=== PATIENT | female | born 1955 | race Caucasian/White ===

== ENCOUNTER → 2021-11-03 09:14 | Outpatient (BNVA) | payer MEDICARE, SELFPAY | PROVIDERS: PCP Internal Medicine; Visit Provider Psychiatry & Neurology Neurology | DX: G20 Parkinson's disease (principal); G25.71 Drug induced akathisia | CPT/HCPCS: 99212 ==

== ENCOUNTER → 2022-03-23 09:47 | Outpatient (BNVA) | payer MEDICARE, SELFPAY | PROVIDERS: PCP Internal Medicine; Visit Provider Psychiatry & Neurology Neurology | DX: G20 Parkinson's disease (principal); G25.71 Drug induced akathisia; Z79.899 Other long term (current) drug therapy | CPT/HCPCS: 99212 ==

== ENCOUNTER → 2022-09-07 10:11 | Outpatient (BNVA) | payer MEDICARE, SELFPAY | PROVIDERS: PCP Internal Medicine; Visit Provider Psychiatry & Neurology Neurology | DX: G20 Parkinson's disease (principal); G25.71 Drug induced akathisia; Z79.899 Other long term (current) drug therapy | CPT/HCPCS: 99212 ==

== ENCOUNTER 2023-01-10 14:07 | Outpatient (AMB) | payer MEDICARE, SELFPAY ==
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
[2023-01-10 14:10] VITALS: BP 130/68; PULSE 80; O2SAT 98; BMI 26.1
== END 2023-01-10 14:52 | disposition home or self-care (01) ==
PROVIDERS: Visit Provider Psychiatry & Neurology Neurology
DX: G20 Parkinson's disease (principal); G25.71 Drug induced akathisia
CPT/HCPCS: 99214

== ENCOUNTER → 2023-01-10 14:07 | Outpatient (BNVA) | payer MEDICARE, SELFPAY | PROVIDERS: Visit Provider Psychiatry & Neurology Neurology | DX: G20 Parkinson's disease (principal); G25.71 Drug induced akathisia; Z79.899 Other long term (current) drug therapy | CPT/HCPCS: 99212 ==

== ENCOUNTER 2023-05-13 10:25 | Outpatient (AMB) | payer MEDICARE, SELFPAY ==
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
[2023-05-13 10:28] VITALS: BP 112/78; PULSE 78; O2SAT 98; BMI 25.3
== END 2023-05-13 10:57 | disposition home or self-care (01) ==
PROVIDERS: PCP Internal Medicine; Visit Provider Nurse Practitioner Family
DX: G20.A1 Parkinson's disease without dyskinesia, without mention of fluctuations (principal); G25.71 Drug induced akathisia
CPT/HCPCS: 99213

== ENCOUNTER → 2023-05-13 10:25 | Outpatient (BNVA) | payer MEDICARE, SELFPAY | PROVIDERS: PCP Internal Medicine; Visit Provider Nurse Practitioner Family | DX: G25.71 Drug induced akathisia (principal); G20.A1 Parkinson's disease without dyskinesia, without mention of fluctuations | CPT/HCPCS: 99212 ==

== ENCOUNTER 2023-10-20 09:17 | Outpatient (AMB) | payer MEDICARE, SELFPAY ==
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
[2023-10-20 09:33] VITALS: BP 112/72; PULSE 74; O2SAT 96; BMI 24.5
== END 2023-10-20 10:03 | disposition home or self-care (01) ==
PROVIDERS: PCP Internal Medicine; Visit Provider Nurse Practitioner Family
DX: G20.C Parkinsonism, unspecified (principal); G25.71 Drug induced akathisia
CPT/HCPCS: 99213

== ENCOUNTER → 2023-10-20 09:17 | Outpatient (BNVA) | payer MEDICARE, SELFPAY | PROVIDERS: PCP Internal Medicine; Visit Provider Nurse Practitioner Family | DX: G20.A1 Parkinson's disease without dyskinesia, without mention of fluctuations (principal); G25.71 Drug induced akathisia; T50.905A Adverse effect of unspecified drugs, medicaments and biological substances, initial encounter; Z79.899 Other long term (current) drug therapy | CPT/HCPCS: 99212 ==

== ENCOUNTER 2024-04-19 09:45 | Outpatient (AMB) | payer MEDICARE, SELFPAY ==
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
[2024-04-19 09:50] VITALS: BP 110/60; PULSE 76; O2SAT 97; BMI 25.0
== END 2024-04-19 10:27 | disposition home or self-care (01) ==
PROVIDERS: PCP Internal Medicine; Visit Provider Psychiatry & Neurology Neurology
DX: G21.11 Neuroleptic induced parkinsonism (principal); T43.505A Adverse effect of unspecified antipsychotics and neuroleptics, initial encounter; G25.71 Drug induced akathisia
CPT/HCPCS: 99214; G2211

== ENCOUNTER → 2024-04-19 09:45 | Outpatient (BNVA) | payer MEDICARE, SELFPAY | PROVIDERS: PCP Internal Medicine; Visit Provider Psychiatry & Neurology Neurology | DX: G21.11 Neuroleptic induced parkinsonism (principal); G25.71 Drug induced akathisia; T43.505A Adverse effect of unspecified antipsychotics and neuroleptics, initial encounter; Z79.899 Other long term (current) drug therapy | CPT/HCPCS: 99212 ==

== ENCOUNTER 2024-10-16 09:57 | Outpatient (AMB) | payer MEDICARE, SELFPAY ==
[2024-10-16 10:02] VITALS: BP 110/72; PULSE 80; O2SAT 97; BMI 26.1
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
== END 2024-10-16 11:24 | disposition home or self-care (01) ==
LOC: HO.HSMS 09:57
PROVIDERS: PCP Internal Medicine; Visit Provider Physician Assistant Medical
DX: G21.11 Neuroleptic induced parkinsonism (principal); T43.505A Adverse effect of unspecified antipsychotics and neuroleptics, initial encounter; R26.89 Other abnormalities of gait and mobility
CPT/HCPCS: 99214

== ENCOUNTER → 2024-10-16 09:57 | Outpatient (BNVA) | payer MEDICARE, SELFPAY | PROVIDERS: PCP Internal Medicine; Visit Provider Physician Assistant Medical | DX: G21.11 Neuroleptic induced parkinsonism (principal); R26.89 Other abnormalities of gait and mobility; T43.505A Adverse effect of unspecified antipsychotics and neuroleptics, initial encounter | CPT/HCPCS: 99212 ==

== ENCOUNTER 2025-01-30 09:42 | Outpatient (AMB) | payer MEDICARE, SELFPAY ==
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
[2025-01-30 09:56] VITALS: BP 116/72; PULSE 75; O2SAT 97; BMI 24.4
== END 2025-01-30 10:47 | disposition home or self-care (01) ==
LOC: HO.HSMS 09:43
PROVIDERS: PCP Internal Medicine; Visit Provider Physician Assistant Medical
DX: G20.B1 Parkinson's disease with dyskinesia, without mention of fluctuations (principal); G21.11 Neuroleptic induced parkinsonism; T43.505A Adverse effect of unspecified antipsychotics and neuroleptics, initial encounter; R26.89 Other abnormalities of gait and mobility
CPT/HCPCS: 99214

== ENCOUNTER → 2025-01-30 09:42 | Outpatient (BNVA) | payer MEDICARE, SELFPAY | PROVIDERS: PCP Internal Medicine; Visit Provider Physician Assistant Medical | DX: G20.B1 Parkinson's disease with dyskinesia, without mention of fluctuations (principal); G21.11 Neuroleptic induced parkinsonism; T43.505A Adverse effect of unspecified antipsychotics and neuroleptics, initial encounter; R26.89 Other abnormalities of gait and mobility | CPT/HCPCS: 99212 ==

== ENCOUNTER 2025-03-07 10:14 | Outpatient (AMB) | payer MEDICARE, SELFPAY ==
[2025-03-07 10:35] VITALS: BP 128/74; PULSE 68; O2SAT 97; BMI 24.1
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
== END 2025-03-07 11:42 | disposition home or self-care (01) ==
LOC: HO.HSMS 10:15
PROVIDERS: PCP Internal Medicine; Visit Provider Physician Assistant Medical
DX: G20.B1 Parkinson's disease with dyskinesia, without mention of fluctuations (principal); G21.11 Neuroleptic induced parkinsonism; T43.505A Adverse effect of unspecified antipsychotics and neuroleptics, initial encounter; R26.89 Other abnormalities of gait and mobility
CPT/HCPCS: 99214

== ENCOUNTER → 2025-03-07 10:14 | Outpatient (BNVA) | payer MEDICARE, SELFPAY | PROVIDERS: PCP Internal Medicine; Visit Provider Physician Assistant Medical | DX: G20.B1 Parkinson's disease with dyskinesia, without mention of fluctuations (principal); G21.11 Neuroleptic induced parkinsonism; R26.89 Other abnormalities of gait and mobility; T43.505A Adverse effect of unspecified antipsychotics and neuroleptics, initial encounter | CPT/HCPCS: 99212 ==

== ENCOUNTER 2025-04-30 12:46 | Outpatient (AMB) | payer MEDICARE, SELFPAY ==
[2025-04-30 12:51] VITALS: BP 128/70; PULSE 78; O2SAT 96; BMI 24.3
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
--- OUTSIDE RECORDS SUMMARY | 2025-04-30 15:26 | XMS_ITS | Clinical Summary ---
Author Organization [address] Address [address] [place] [id number] Phone Care Team Providers Care Knee Bolter Name Role Phone Yaron Morales MD Primary Care Provider [phone] Surgical History Surgery Date Site/Laterality Comments APPENDECTOMY age 7 PROCEDURE: CA APPENDECTOMY OTHER SURGICAL HISTORY age 21 PROCEDURE: CA TONSILLECTOMY & ADENOIDECTOMY AGE 11/> Medical History Medical History Date Comments PTSD (post-traumatic stress disorder) DX:PTSD (post-traumatic stress disorder); COMMENT: Zyprexa, Wellbutrin Asthma DX:Asthma Family history of breast cancer DX:Family history of breast cancer; COMMENT: BRCA negative. Borderline high cholesterol 05/31/2016 DX:B orderline high cholesterol BRCA gene mutation negative in female DX:BRCA gene mutation negative in female; COMMENT: 2 sisters with breast cancer Family History Medical History Relation Name Comments Other: Parkinsons Dx Father Other: A-fib Mother Breast cancer Sister 1 53y Breast cancer Sister 2 45y Relation Name Status Comments Father Mother Sister 1 53y Alive Sister 2 45y Alive Social History Tobacco Use Types Packs/Day Years Used Date Smoking Tobacco: Never Smokeless Tobacco: Never Alcohol Use Standard Drinks/Week Comments No 0 (1 standard drink = 0.6 oz pur e alcohol) Comments Unknown Sex and Gender Information Value Date Recorded Sex Assigned at Not on file Legal Sex Female 5:21 AM EST Gender Identity Not on file Sexual Orientation Not on file Obstetrics History Plan of Treatment Health Maintenance Due Date Last Done Comments Colorectal Cancer Screening: Colonoscopy 1955 Pneumococcal Vaccine: 50+ Ye ars (1 of 2 - PCV) 1973 RSV Immunization Adult Patie nts (1 - Risk 50-74 years 1-dose series) 2004 Zoster Vaccines (2 of 3) 06/28/2016 05/03/2016 Breast Cancer Screening 06/12/2020 06/12/2018 Depression Screening 06/27/2024 Falls Risk Assessment 07/25/2024 Hepatitis C Screening 07/25/2024 Osteoporosis Screening (Bone Density Screening) 07/25/2024 Social Influencers of Health Screening 07/25/2024 COVID-19 Vaccine (1 - 2023-2 5 season) 2025 Influenza Vaccine (#1) 2025 05/02/2017 DTaP,Tdap,and Td Vaccines (2 - Td or Tdap) 05/03/2026 05/03/2016 HIB Vaccines Aged Out No longer eligi ble based on patient's age to complete this topic HPV Vaccines Aged Out No longer eligi ble based on patient's age to complete this topic Hepatitis A Vaccines Aged Out No long er eligible based on patient's age to complete this topic Hepatitis B Vaccines Aged Out No long er eligible based on patient's age to complete this topic IPV Vaccines Aged Out No longer eligi ble based on patient's age to complete this topic MMR Vaccines Aged Out No longer eligi ble based on patient's age to complete this topic Meningococcal ACWY Vaccine Aged Out N o longer eligible based on patient's age to complete this topic Meningococcal B Vaccine Aged Out No l onger eligible based on patient's age to complete this topic RSV Immunization Patients Un zuleima 20 months Aged Out No longer eligible b ased on patient's age to complete this topic Varicella Vaccines Aged Out No longer eligible based on patient's age to complete this topic Procedures Procedure Name Priority Date/Time Associated Diagnosis Comments MRI BREAST BILATERAL Routine 06/12/2018 4:05 PM EST Family history of malignant neoplasm of breast from Last 3 Months or Most Recently Relevant to Health Maintenance Results * MRI BREAST BILATERAL (06/12/2018 4:05 PM EST) Anatomical Region Laterality Modality Magnetic Resonan ce 06/01/2018 9:24 AM EST Narrative 06/14/2018 2:19 PM EST This is a summary report. The complete report is available in the patient's medical record. If you cannot access the medical record, please contact the sending organization for a detailed fax or copy. BILATERAL BREAST MRI WITH AND WITHOUT CONTRAST: History: High risk screening COMPARISON: 05/25/2016 screening mammogram Technique: Multiplanar, multiphasic MRI performed with and without contrast on a 1.5 Valerie magnet using Department protocol. 10 cc Gadavist were administered intravenously. Interpretation was made with benefit of DynaCAD. Breast tissue pattern is heterogeneously dense. Background parenchymal enhancement pattern is mild. Right breast: There is no suspicious mass lesion, abnormal threshold enhancement, suspicious washout contrast kinetics, architectural distortion, or skin thickening in the right breast. No lymphadenopathy is seen. Left breast: There is no suspicious mass lesion, abnormal threshold enhancement, suspicious washout contrast kinetics, architectural distortion, or skin thickening in the left breast. No lymphadenopathy is seen. IMPRESSION: IMPRESSION: No evidence of malignancy. Recommend yearly screening breast MRI in addition to yearly screening mammography per ACR/ACS guidelines. BI-RADS 1-negative Procedure Note Jerald Hernandez MD - 06/15/2022 This is a summary report. The complete report is available in thepatient's medical record. If you cannot access the medical record, pleasecontact the sending organization for a detailed fax or copy. BILATERAL BREAST MRI WITH AND WITHOUT CONTRAST: History: High risk screening COMPARISON: 05/25/2016 screening mammogram Technique: Multiplanar, multiphasic MRI performed with and withoutcontrast on a 1.5 Valerie magnet using Department protocol. 10 cc Gadavist were administeredintravenously. Interpretation was made with benefit of DynaCAD. Breast tissue pattern is heterogeneously dense. Background parenchymalenhancement pattern is mild. Right breast: There is no suspicious mass lesion, abnormal thresholdenhancement, suspicious washout contrast kinetics, architectural distortion, or skin thickening in the rightbreast. No lymphadenopathy is seen. Left breast: There is no suspicious mass lesion, abnormal thresholdenhancement, suspicious washout contrast kinetics, architectural distortion, or skin thickening in the left breast.No lymphadenopathy is seen. IMPRESSION: IMPRESSION: No evidence of malignancy. Recommend yearly screening breastMRI in addition to yearly screening mammography per ACR/ACS guidelines. BI-RADS 1-negative Tai MONTEMAYOR IMAnthoyn MRI PROCEDURES Final Result from Last 3 Months or Most Recently Relevant to Health Maintenance Insurance [facility] Care Teams Knee Bolter Relationship Specialty Start Date End Date Yaron Morales MD [address] [place] [address] [address] [place], [place] PCP - General Internal Medicine 05/19/21
--- OUTSIDE RECORDS SUMMARY | 2025-04-30 15:26 | XMS_ITS | Encounter Summary ---
Author Organization [facility] Address [address] [place] [address] Care Team Providers Care Process Engineering Manager Name Role Phone Yaron Morales MD Primary Care Provider [phone] Encounter Details Date Type Department Care Team (Late st Contact Info) Description 07/25/2024 Lab Requisition [facility] - Main Lab [address] [facility] [place] [address] Yaron Morales MD [address] [place], [place] Post-traumatic stress disorder, unspecified; Major depressive disorder, recurrent, moderate (CMS/HCC V24, CMS/HCC V28); Vitamin D deficiency, unspecified; Subclinical iodine-deficiency hypothyroidism Social History Tobacco Use Types Packs/Day Years Used Date Smoking Tobacco: Never Smokeless Tobacco: Never Alcohol Use Standard Drinks/Week Comments No 0 (1 standard drink = 0.6 oz pur e alcohol) Comments Unknown Sex and Gender Information Value Date Recorded Sex Assigned at Not on file Legal Sex Female 5:21 AM EST Gender Identity Not on file Sexual Orientation Not on file documented as of this encounter Plan of Treatment Not on file documented as of this encounter Procedures Procedure Name Priority Date/Time Associated Diagnosis Comments CBC WITH AUTO DIFFERENTIAL Routine 07/25/2024 7:38 AM EST Post-traumatic stress disorder, unspecified Major depressive disorder, recurrent, moderate (CMS/HCC) Vitamin D deficiency, unspecified Subclinical iodine-deficiency hypothyroidism VITAMIN D 25 HYDROXY Routine 07/25/2024 7:38 AM EST Post-traumatic stress disorder, unspecified Major depressive disorder, recurrent, moderate (CMS/HCC) Vitamin D deficiency, unspecified Subclinical iodine-deficiency hypothyroidism CBC AND DIFFERENTIAL Routine 07/25/2024 7:38 AM EST Post-traumatic stress disorder, unspecified Major depressive disorder, recurrent, moderate (CMS/HCC) Vitamin D deficiency, unspecified Subclinical iodine-deficiency hypothyroidism C-REACTIVE PROTEIN Routine 07/25/2024 7: 38 AM EST Post-traumatic stress disorder, unspecified Major depressive disorder, recurrent, moderate (CMS/HCC) Vitamin D deficiency, unspecified Subclinical iodine-deficiency hypothyroidism THYROID STIMULATING HORMONE Routine 07/25/2024 7:38 AM EST Post-traumatic stress disorder, unspecified Major depressive disorder, recurrent, moderate (CMS/HCC) Vitamin D deficiency, unspecified Subclinical iodine-deficiency hypothyroidism COMPREHENSIVE METABOLIC PANEL Routine 07/25/2024 7:38 AM EST Post-traumatic stress disorder, unspecified Major depressive disorder, recurrent, moderate (CMS/HCC) Vitamin D deficiency, unspecified Subclinical iodine-deficiency hypothyroidism documented in this encounter Results * (ABNORMAL) CBC auto differential (07/25/2024 7:38 AM EST) WBC 2.7(L) 4.8 - 10.8 K/mcL LAB HEMETOLOGY METHOD 07/25/2024 12:41 PM [facility] RBC 4.40 3.80 - 4.80 M/mcL LAB HEMETOLOGY METHOD 07/25/2024 12:41 PM [facility] Hemoglobin 13.7 11.5 - 16.0 g/dL LAB HEMETOLOGY METHOD 07/25/2024 12:41 PM [facility] Hematocrit 42.3 35.0 - 47.0 % LAB HEMETOLOGY METHOD 07/25/2024 12:41 PM [facility] MCV 97.2 79.0 - 98.0 FL LAB HEMETOLOGY METHOD 07/25/2024 12:41 PM [facility] MCH 31.5 27.0 - 32.0 pcg LAB HEMETOLOGY METHOD 07/25/2024 12:41 PM [facility] MCHC 32.4 32.0 - 37.0 g/dL LAB HEMETOLOGY METHOD 07/25/2024 12:41 PM [facility] RDW 12.2 11.0 - 15.0 % LAB HEMETOLOGY METHOD 07/25/2024 12:41 PM [facility] Platelets 200 130 - 400 K/mcL LAB HEMETOLOGY METHOD 07/25/2024 12:41 PM [facility] MPV 11.0 7.0 - 11.0 FL LAB HEMETOLOGY METHOD 07/25/2024 12:41 PM [facility] NRBC 0.0 <1.0 % LAB HEMETOLOGY METHOD 07/25/2024 12:41 PM [facility] NRBC Absolute 0.00 <0.10 K/mcL LAB HEMETOLOGY METHOD 07/25/2024 12:41 PM [facility] Neutrophils Relative 47.2 % LAB HEMETOLOGY METHOD 07/25/2024 12:41 PM [facility] Lymphocytes Relative 40.2 % LAB HEMETOLOGY METHOD 07/25/2024 12:41 PM [facility] Monocytes Relative 8.9 % LAB HEMETOLOGY METHOD 07/25/2024 12:41 PM [facility] Eosinophils Relative 2.2 % LAB HEMETOLOGY METHOD 07/25/2024 12:41 PM [facility] Basophils Relative 1.1 % LAB HEMETOLOGY METHOD 07/25/2024 12:41 PM [facility] Immature Granulocytes Relative 0.4 % LAB HEMETOLOGY METHOD 07/25/2024 12:41 PM [facility] Neutrophils Absolute 1.28(L) 1.50 - 7.00 K/mcL LAB HEMETOLOGY METHOD 07/25/2024 12:41 PM EST [facility] Lymphocytes Absolute 1.09 1.00 - 5.00 K/[facility] LAB HEMETOLOGY METHOD 07/25/2024 12:41 PM EST [facility] Monocytes Absolute 0.24 0.20 - 1.00 K/mcL LAB HEMETOLOGY METHOD 07/25/2024 12:41 PM EST [facility] Eosinophils Absolute 0.06 0.00 - 0.50 K/[facility] LAB HEMETOLOGY METHOD 07/25/2024 12:41 PM EST [facility] Basophils Absolute 0.03 0.00 - 0.20 K/[facility] LAB HEMETOLOGY METHOD 07/25/2024 12:41 PM EST [facility] Immature Granulocytes Absolute 0.01 0.00 - 0.03 K/[facility] LAB HEMETOLOGY METHOD 07/25/2024 12:41 PM EST [facility] Blood Venous blood specimen / Unknown Venipuncture / Unknown 07/25/2024 7:38 AM EST 07/25/2024 11:37 AM EST us Yaron Morales MD LAB BLOOD ORDERABLES Final Res ult [facility] [address] [place] [address], [place] [phone] * Thyroid stimulating hormone (07/25/2024 7:38 AM EST) TSH 1.84 0.40 - 4.00 mcIU/mL LAB CHEMISTRY METHOD 07/25/2024 2:55 PM EST [facility] Blood Venous blood specimen / Unknown Venipuncture / Unknown 07/25/2024 7:38 AM EST 07/25/2024 11:37 AM EST us Yaron Morales MD LAB BLOOD ORDERABLES Final Res ult [facility] [address] [place] [address], [place] [phone] * Vitamin D 25 hydroxy (07/25/2024 7:38 AM EST) [facility] Vit D, 25-Hydroxy 34.3 30.0 - 80.0 ng/mL LAB CHEMISTRY METHOD 07/25/2024 3:24 PM [facility] Comment:Hemolysis present Blood Venous blood specimen / Unknown Venipuncture / Unknown 07/25/2024 7:38 AM EST 07/25/2024 11:37 AM EST us Yaron Morales MD LAB BLOOD ORDERABLES Final Res ult [facility] [address] [place] [address], [place] [phone] * Comprehensive metabolic panel (07/25/2024 7:38 AM EST) [facility] Sodium 136 133 - 145 mmol/L LAB CHEMISTRY METHOD 07/25/2024 3:24 PM [facility] Potassium 5.1 3.5 - 5.5 mmol/L LAB CHEMISTRY METHOD 07/25/2024 3:24 PM [facility] Comment:Hemolysis present Chloride 105 96 - 110 mmol/L LAB CHEMISTRY METHOD 07/25/2024 3:24 PM [facility] CO2 28 21 - 32 mmol/L LAB CHEMISTRY METHOD 07/25/2024 3:24 PM [facility] Anion Gap 3 3 - 11 LAB CHEMISTRY METHOD 07/25/2024 3:24 PM [facility] Glucose 73 70 - 100 mg/dL LAB CHEMISTRY METHOD 07/25/2024 3:24 PM [facility] BUN 11 5 - 25 mg/dL LAB CHEMISTRY METHOD 07/25/2024 3:24 PM [facility] Creatinine 0.64 0.50 - 1.10 mg/dL LAB CHEMISTRY METHOD 07/25/2024 3:24 PM [facility] eGFR 96 >=60 mL/min/1. 73m2 LAB CHEMISTRY METHOD 07/25/2024 3:24 PM [facility] Comment:Calculation based on the Chronic Kidney Disease Epidemiology Collaboration (CKD-EPI) equation refit without adjustment for race. BUN/Creatinine Ratio 17.2 LAB CHEMISTRY METHOD 07/25/2024 3:24 PM [facility] Calcium 9.2 8.5 - 10.5 mg/dL LAB CHEMISTRY METHOD 07/25/2024 3:24 PM [facility] AST (SGOT) 21 10 - 42 unit/L LAB CHEMISTRY METHOD 07/25/2024 3:24 PM [facility] Comment:Hemolysis present ALT (SGPT) 14 10 - 60 unit/L LAB CHEMISTRY METHOD 07/25/2024 3:24 PM [facility] Alkaline Phosphatase 84 42 - 121 unit/L LAB CHEMISTRY METHOD 07/25/2024 3:24 PM [facility] Total Protein 6.9 6.0 - 8.0 g/dL LAB CHEMISTRY METHOD 07/25/2024 3:24 PM [facility] Albumin 3.9 3.2 - 5.0 g/dL LAB CHEMISTRY METHOD 07/25/2024 3:24 PM [facility] Total Bilirubin 0.6 0.0 - 1.4 mg/dL LAB CHEMISTRY METHOD 07/25/2024 3:24 PM [facility] Blood Venous blood specimen / Unknown Venipuncture / Unknown 07/25/2024 7:38 AM EST 07/25/2024 11:37 AM EST us Yaron Morales MD LAB BLOOD ORDERABLES Final Res ult [facility] [address] [place] [address], [place] [phone] * C-reactive protein (07/25/2024 7:38 AM EST) C-Reactive Protein <0.29 <=0.50 mg/dL LAB CHEMISTRY METHOD 07/25/2024 3:24 PM EST [facility] Blood Venous blood specimen / Unknown Venipuncture / Unknown 07/25/2024 7:38 AM EST 07/25/2024 11:37 AM EST us Yaron Morales MD LAB BLOOD ORDERABLES Final Res ult [facility] [address] [place] [address], documented in this encounter Visit Diagnoses Diagnosis Post-traumatic stress disorder, unspecified Major depressive disorder, recurrent, moderate (CMS/HCC V24, CMS/HCC V28) Major depressive disorder, recurrent episode, moderate Vitamin D deficiency, unspecified Subclinical iodine-deficiency hypothyroidism documented in this encounter Care Teams Process Engineering Manager Relationship Specialty Start Date End Date Yaron Morales MD [address] [place] [address] Rd [address] [place], [place] PCP - General Internal Medicine 05/19/21 documented as of this encounter
== END 2025-04-30 13:27 | disposition home or self-care (01) ==
LOC: HO.HSMS 12:47
PROVIDERS: PCP Internal Medicine; Visit Provider Psychiatry & Neurology Neurology
DX: G20.A1 Parkinson's disease without dyskinesia, without mention of fluctuations (principal); G21.11 Neuroleptic induced parkinsonism; T43.505A Adverse effect of unspecified antipsychotics and neuroleptics, initial encounter; G25.71 Drug induced akathisia
CPT/HCPCS: 99214; G2211

== ENCOUNTER → 2025-04-30 12:46 | Outpatient (BNVA) | payer MEDICARE, SELFPAY | PROVIDERS: PCP Internal Medicine; Visit Provider Psychiatry & Neurology Neurology | DX: G20.B1 Parkinson's disease with dyskinesia, without mention of fluctuations (principal); G21.11 Neuroleptic induced parkinsonism; T43.505A Adverse effect of unspecified antipsychotics and neuroleptics, initial encounter; G25.71 Drug induced akathisia | CPT/HCPCS: 99212 ==